=== PATIENT | male | born 2000 | race Caucasian/White ===

== ENCOUNTER 2021-01-18 05:37 | Outpatient (CLI) | payer OTHER ==
[~2021-01-18] VITALS: Ht 177.8 cm; Wt 77.7 kg
[2021-01-18] MEDS ORDERED: INSU100I48 SQ (10:53)
[2021-01-18] MEDS ORDERED: INSU100I10 SQ (10:53)
== END 2021-01-18 10:54 | disposition home or self-care (01) ==
LOC: PREOP 05:37
PROVIDERS: ATTEND Surgery
DX: Z01.818 Encounter for other preprocedural examination (principal)

== ENCOUNTER 2021-01-25 06:51 | Day surgery (SDC) | payer OTHER ==
[2021-01-25] VITALS (10 sets, daily range): BP systolic 120–147; BP diastolic 70–97
[~2021-01-25] VITALS: Ht 177.8 cm; Wt 77.7 kg
[~2021-01-25 06:51] MED LIST: INSU100I10 SQ; INSU100I48 SQ
[2021-01-25] MEDS: LACTATED RINGERS 1,000 ML IV PRN ×2 (07:27→09:16)
[2021-01-25] MEDS ORDERED: ceFAZolin 2 GM IV Premixed 50 ML IV ONE (07:30)
[2021-01-25] MEDS ORDERED: ONDANSETRON 4 MG/2 ML (SDV) Z0FRAN ONE (07:42)
[2021-01-25] MEDS ORDERED: LIDOCAINE PF 2% 5 ML (XYLOCAINE) VIAL ONE (07:42)
[2021-01-25] MEDS ORDERED: GLYCOPYRROLATE 0.2 MG/ML (ROBINUL) 2 ML VIAL ONE (07:42)
[2021-01-25] MEDS ORDERED: MIDAZOLAM 2 MG/2 ML (VERSED) VIAL ONE (07:42)
[2021-01-25] MEDS ORDERED: fentaNYL INJ 100 MCG/2 ML AMP ONE (07:42)
[2021-01-25] MEDS ORDERED: proPOfol 200 MG/20 ML (DIPRIVAN) VIAL IV ONE (07:42)
[2021-01-25] MEDS ORDERED: NEOSTIGMINE 3 MG/3 ML VIAL ONE (07:42)
[2021-01-25] MEDS ORDERED: SEVOFLURANE (ULTANE) 15 ML INHAL SOLN ONE (07:43)
[2021-01-25] MEDS ORDERED: LIDOCAINE/EPI 1%-1:100,000 (XYLOCAINE) 20ML ONE (07:48)
--- NOTE | 2021-01-25 08:03 | Progress Note-Pre Operative ---
Pre-Operative Progress Note H&P Reviewed The H&P was reviewed, patient examined and no changes noted. Time Seen by Provider: 07:59 Date H&P Reviewed: Jan 25, 2021 Time H&P Reviewed: 07:59 Pre-Operative Diagnosis: Pilonidal cyst MANASA BUSH DO Jan 25, 2021 08:03
[2021-01-25] MEDS ORDERED: PHENYLEPHRINE 100 MCG/ML 10 ML (ANESTHESIA) SYR ONE (08:45)
--- NOTE | 2021-01-25 08:50 | Progress Note-Post Operative ---
Post-Operative Progess Note Surgeon (s)/Senior Counsel (s) Surgeon MANASA BUSH DO Senior Counsel: NONE Pre-Operative Diagnosis Pilonidal cyst with abscess Post-Operative Diagnosis Same with abscess Procedure & Operative Findings Date of Procedure 01/25/21 Procedure Performed/Findings Exc pilonidal cyst Anesthesia Type GET Estimated Blood Loss Estimated blood loss (mL): less than 5ml Specimens/Packing Specimens Removed pilonidal cyst MANASA BUSH DO Jan 25, 2021 08:50
[2021-01-25] MEDS ORDERED: ACHD5005 PO (08:51)
--- NOTE | 2021-01-25 08:52 | Discharge Inst-Surgical ---
Discharge Inst-Surgical Depart Medication/Instructions New, Converted or Re-Newed RX: RX Given to Pt/Family Patient Instructions Follow up Appt: Make appointment for 1 week. [phone] Instructions: No lifting greater than 20 pounds. No strenuous activity. May shower in 24 hours, no tub bath or soaking. Use incentive spirometer at home as directed. No Smoking Skin/Wound Care: May remove bandages in am. You need to leave the sutures in place, they will be removed in 10-14 days in the office. Symptoms to Report: Appetite Changes, Extremity Discoloration, Numbness/Tingling, Swelling Increased, Bleeding Excessive, Eyesight Changes, Pain Increased, Urine Color Change, Constipation(Persistent), Fever over 101 degree F, Pain/Pressure in ches t, Urinating Difficulty, Cough Up/Vomit Blood, Heart Beat Irreg/Pounding, Pain/Pressure in jaw, Cramps in feet or legs, Lightheadedness, Pain/Pressure in shoulder, Diarrhea(Persistent), Memory Changes Suddenly, Questions/Concerns, Weight gain consecutive days, Dizziness/Fainting, Nausea/Vomiting, Shortness of Breath, Weight gain over 2 pounds If questions or concerns contact your physician Or seek help at emergency department. Activity Activity as Tolerated: Yes Activity Instructions: Avoid Stress to Incision Driving Instructions: No Driving/Refer to Dr. Nino Discharge Diet: No Restrictions Diet After 24 Hours: Clear Liquid if Nauseous If Any Problems/Questions/Issu: Contact Your Physician, Go to Emergency Room Skin/Wound Care Infection Signs and Symptoms: Increased Redness, Foul Odor of Wound, Increased Drainage, Skin Itchy or Has a Rash, Increased Swelling, Temperature Above 101 F Bathing Instructions: Shower Stitches/[place]/Dermabond Dis: Care of Stitches MANASA BUSH DO Jan 25, 2021 08:52
[2021-01-25] MEDS ORDERED: MEPERIDINE (DEMEROL) INJ 50 MG/ML ONE (09:05)
--- NOTE | 2021-01-25 09:07 | Anesthesia-General Post-Op ---
General Patient Condition Mental Status/LOC: Same as Preop Cardiovascular: Satisfactory Nausea/Vomiting: Absent Respiratory: Satisfactory Pain: Controlled Complications: Absent Post Op Complications Complications None Follow Up Care/Instructions Patient Instructions None needed. Anesthesia/Patient Condition Patient Condition Patient is doing well, no complaints, stable vital signs, no apparent adverse anesthesia problems. No complications reported per nursing. PATRICIA RODRIGUEZ CRNA Jan 25, 2021 09:07
[2021-01-25] MEDS ORDERED: MEPERIDINE (DEMEROL) INJ 50 MG/ML IVP ONE (09:15)
[2021-01-25] MEDS ORDERED: fentaNYL INJ 100 MCG/2 ML AMP IVP ONE (09:15)
[2021-01-25] MEDS ORDERED: ONDANSETRON 4 MG/2 ML (SDV) Z0FRAN IVP PRN (09:15)
[2021-01-25] MEDS ORDERED: HYDROmorphone 2 MG/ML VIAL (DILAUDID) IV ONE (09:15)
--- NOTE | 2021-01-25 15:47 | OPERATIVE REPORT ---
DATE OF SERVICE: 01/25/2021 PREOPERATIVE DIAGNOSIS: Pilonidal cyst with abscess. POSTOPERATIVE DIAGNOSIS: Pilonidal cyst with abscess. PROCEDURE PERFORMED: Excision of pilonidal cyst. SURGEON: Bk Thakkar DO. QUALITY ASSURANCE CALIBRATOR: None. ANESTHESIA: General endotracheal tube. SPECIMEN: Pilonidal cyst. BLOOD LOSS: Less than 5 mL. FLUIDS: Per anesthesia. POSTOPERATIVE CONDITION: Stable. INDICATION FOR PROCEDURE: The patient is a 20-year-old male, who has an open sore on his left gluteal region and diagnosed with pilonidal cyst. FINDINGS: The patient had a pilonidal cyst. It looked like he had some abscess and actually had hair growing out of it as well as the small openings in the midline between the two gluteal cheeks. PROCEDURE NOTE: After informed consent was obtained, the patient was brought to the operating room. He was intubated and placed on table in a prone position. He was then shaved and then sterilely prepped and draped in a normal fashion. Hair had been pulled out of the openings of the pilonidal cyst. Prior to prepping, he was prepped and draped in normal fashion. I then elected to infiltrate the area along the left gluteal cheek. This was a large opening and then down and along the medial cleft. With local, I then made two elliptical incisions, diagonal from the left colon into the midline and then elliptical around the midline and then around these pilonidal cysts. The one in the left actually connected to these three. I made this incision down through the skin into the subcutaneous tissue, then deepened down to the subcutaneous tissue with Bovie electrocautery, all the way down to the fascia just above the sacrum. There were a couple of more tracts. These were grasped and taken out with Bovie electrocautery, able to remove all of these pilonidal cyst tracts including to the left, there was hair growing in them and looked like a little bit of necrotic tissue and/or purulent fluid. Once this was completely removed, this was then taken off and passed off to pathology. Copiously irrigated with normal saline. Hemostasis was obtained using Bovie electrocautery. I then elected to close the incision, closed with 2-0 PDS, six interrupted vertical mattress sutures. Area was then cleaned and dried, dressings placed. The patient tolerated the procedure and transferred to recovery room in a stable condition. Sponge, instrument and needle count correct at the end of the case. Job ID: [id number] DocumentID: [id number] Dictated Date: 01/25/2021 09:54:27 Wreath Machine Operator Date: 01/25/2021 15:46:36 Dictated By: DO YANELI ROMERO
== END 2021-01-25 11:10 | disposition home or self-care (01) ==
LOC: SDC 06:51
PROVIDERS: ATTEND Surgery
DX: L05.01 Pilonidal cyst with abscess (principal); E11.9 Type 2 diabetes mellitus without complications; Z79.4 Long term (current) use of insulin
CPT/HCPCS: 82947; 87081; 88304